=== PATIENT | female | born 1935 ===

== ENCOUNTER 2023-04-11 20:02 | Inpatient (IN) | payer MEDICARE, OTHER ==
[~2023-04-11] VITALS: Ht 154.9 cm; Wt 54.9 kg
[2023-04-11 22:02] VITALS: O2SAT 96
[2023-04-11] MEDS ORDERED: REMEDY ESSENTIAL ZINC PASTE 113 GM TOP PRN (22:15)
[2023-04-11 22:42] VITALS: BP 141/48; TEMP 98.2; O2SAT 95
[2023-04-11] MEDS ORDERED: MAGN400O6 PO (23:15)
[2023-04-11] MEDS ORDERED: ACET-3117 PO (23:15)
[2023-04-11] MEDS ORDERED: MELA10TA PO (23:15)
[2023-04-11] MEDS ORDERED: BISA10SU95 RC (23:15)
[2023-04-11] MEDS ORDERED: DOCU100T2 PO (23:15)
[2023-04-11] MEDS ORDERED: AMLO-212 PO (23:15)
[2023-04-11] MEDS ORDERED: POLY17PO4 PO (23:15)
[2023-04-11] MEDS ORDERED: TRAM100T23 PO (23:15)
[2023-04-11] MEDS ORDERED: SENN-18 PO (23:15)
[2023-04-11] MEDS ORDERED: CLON-418 PO (23:15)
[2023-04-11] MEDS ORDERED: HYDR-3980 PO (23:15)
[2023-04-11] MEDS ORDERED: RIVA10TA PO (23:15)
[2023-04-11] MEDS ORDERED: DIPH25CA83 PO (23:15)
[2023-04-11] MEDS ORDERED: HYDR-3972 PO (23:15)
[2023-04-11] MEDS ORDERED: CALC500T88 PO (23:15)
[2023-04-11] MEDS ORDERED: GABA-532 PO (23:15)
[2023-04-12] MEDS ORDERED: MIRALAX 17 GM POWD.PACK PO PRN
[2023-04-12] MEDS ORDERED: MAGNESIUM HYDROXIDE 30 ML LIQUID UDC PO PRN
[2023-04-12] MEDS ORDERED: SENNOSIDES 1 TABLET PO PRN
[2023-04-12] MEDS ORDERED: HYDROCODONE/APAP 10-325 MG TABLET PO PRN
[2023-04-12] MEDS ORDERED: Medication Not On Formulary EA (Clonidine HCl (Clonidine HCl ER) 0.1 MG) PO SCH
[2023-04-12] MEDS ORDERED: diphenhydrAMINE 25 MG CAP PO PRN
[2023-04-12] MEDS ORDERED: HYDROCODONE/APAP 5-325MG TABLET PO PRN
[2023-04-12] MEDS ORDERED: Medication Not On Formulary EA (Melatonin 0.5 MG) PO SCH
[2023-04-12] MEDS: TRAMADOL HCL 50 MG TABLET PO SCH ×4 (03:48→16:12)
[2023-04-12 04:22] VITALS: BP 143/51; TEMP 98.3; O2SAT 95
[2023-04-12 06:04] LABS: BASOPHILS % (AUTO) 0.3 % (0.0-2.0); EOSINOPHILS # (AUTO) 0.1 K/uL (0.0-0.7); EOSINOPHILS % (AUTO) 0.8 % (0.0-7.0); HEMATOCRIT 31.2 % (31.2-41.9); HEMOGLOBIN 10.9 g/dL (10.9-14.3); LYMPHOCYTES # (AUTO) 1.4 K/uL (0.8-4.8); LYMPHOCYTES % (AUTO) 14.9 % (20.5-51.5); MEAN CORPUSCULAR HEMOGLOBIN 30.9 uug (24.7-32.8); MEAN CORPUSCULAR HGB CONC 35 g/dL (32.3-35.6); MEAN CORPUSCULAR VOLUME 88.2 fL (75.5-95.3); MONOCYTES # (AUTO) 0.9 K/uL (0.1-1.30); MONOCYTES % (AUTO) 9.8 % (0.0-11.0); NEUTROPHILS # (AUTO) 7.2 K/uL (1.8-8.9); NEUTROPHILS % (AUTO) 74.2 % (38.5-71.5); PLATELET COUNT (AUTO) 213 K/uL (179-408); RED BLOOD CELL COUNT(AUTO) 3.53 MIL/uL (3.63-4.92); RED CELL DISTRIBUTION WIDTH 14.8 % (12.3-17.7); WHITE BLOOD COUNT (AUTO) 9.6 K/uL (3.8-11.8)
[2023-04-12 07:03] LABS: ALANINE AMINOTRANSFERASE 21 U/L (14-59); ALBUMIN 2.6 g/dL (3.4-5.0); ALKALINE PHOSPHATASE 56 U/L (50-136); ASPARTATE AMINOTRANSFERASE 38 U/L (15-37); BILIRUBIN,TOTAL 0.6 mg/dL (0.2-1.0); CALCIUM 8.5 mg/dL (8.5-10.1); CARBON DIOXIDE 27 mmol/L (21-32); CHLORIDE 107 mmol/L (98-107); CREATININE 0.9 mg/dL (0.6-1.3); GLUCOSE 115 mg/dL (74-106); MAGNESIUM 1.9 mg/dL (1.8-2.4); PHOSPHOROUS 2.6 mg/dL (2.5-4.9); POTASSIUM 3.7 mmol/L (3.5-5.1); SODIUM SERUM 139 mmol/L (136-145); TOTAL PROTEIN, SERUM 5.6 g/dL (6.4-8.2); UREA NITROGEN, BLOOD 16 mg/dL (7-18)
[2023-04-12 07:24] LABS: DIFFERENTIAL COMMENT 1
[2023-04-12] MEDS: AMLODIPINE 5 MG TABLET PO SCH (08:39)
[2023-04-12] MEDS: DOCUSATE SODIUM 100 MG CAPSULE PO SCH ×2 (08:39→16:12)
[2023-04-12] MEDS: RIVAROXABAN 10 MG TABLET PO SCH (08:40)
[2023-04-12] MEDS: CALCIUM CARBONATE 500 MG TABLET PO SCH (08:41)
[2023-04-12] MEDS: GABAPENTIN 100 MG CAPSULE PO SCH ×3 (08:41→16:12)
[2023-04-12] MEDS ORDERED: BISACODYL 10 MG SUPP.RECT RC SCH (09:00)
[2023-04-12] MEDS ORDERED: TRAM50TA2 PO (13:06)
[2023-04-12] MEDS ORDERED: CLON0.1T PO (13:06)
[2023-04-12] MEDS ORDERED: BISACODYL 10 MG SUPP.RECT RC PRN (14:00)
[2023-04-12 16:00] VITALS: BP 149/54; TEMP 98; O2SAT 99
[2023-04-12] MEDS ORDERED: TRAMADOL HCL 50 MG TABLET PO PRN (19:15)
[2023-04-12 20:44] VITALS: BP 126/37; TEMP 98.3; O2SAT 93
[2023-04-13 07:55] VITALS: BP 121/49; TEMP 98.5; O2SAT 96
[2023-04-13] MEDS: DOCUSATE SODIUM 100 MG CAPSULE PO SCH ×2 (08:57→17:24)
[2023-04-13] MEDS: CALCIUM CARBONATE 500 MG TABLET PO SCH (08:58)
[2023-04-13] MEDS: GABAPENTIN 100 MG CAPSULE PO SCH (08:58)
[2023-04-13] MEDS: AMLODIPINE 5 MG TABLET PO SCH (09:00)
[2023-04-13] MEDS: RIVAROXABAN 10 MG TABLET PO SCH (09:00)
[2023-04-13 15:49] VITALS: BP 144/42; TEMP 98.8; O2SAT 95
[2023-04-13 20:06] VITALS: BP 110/96; TEMP 98.6; O2SAT 96
[2023-04-14 04:16] VITALS: BP 140/54; TEMP 97.8; O2SAT 96
[2023-04-14 06:57] LABS: BASOPHILS % (AUTO) 0.6 % (0.0-2.0); EOSINOPHILS # (AUTO) 0.1 K/uL (0.0-0.7); EOSINOPHILS % (AUTO) 1.3 % (0.0-7.0); HEMOGLOBIN 9.9 g/dL (10.9-14.3); LYMPHOCYTES # (AUTO) 1.3 K/uL (0.8-4.8); LYMPHOCYTES % (AUTO) 17.2 % (20.5-51.5); MEAN CORPUSCULAR HEMOGLOBIN 30.2 uug (24.7-32.8); MEAN CORPUSCULAR HGB CONC 34 g/dL (32.3-35.6); MEAN CORPUSCULAR VOLUME 88.5 fL (75.5-95.3); MONOCYTES # (AUTO) 0.9 K/uL (0.1-1.30); MONOCYTES % (AUTO) 11.5 % (0.0-11.0); NEUTROPHILS # (AUTO) 5.4 K/uL (1.8-8.9); NEUTROPHILS % (AUTO) 69.4 % (38.5-71.5); PLATELET COUNT (AUTO) 242 K/uL (179-408); RED BLOOD CELL COUNT(AUTO) 3.28 MIL/uL (3.63-4.92); RED CELL DISTRIBUTION WIDTH 14.6 % (12.3-17.7); WHITE BLOOD COUNT (AUTO) 7.8 K/uL (3.8-11.8)
[2023-04-14 07:13] LABS: DIFFERENTIAL COMMENT 1
[2023-04-14 07:32] LABS: THYROID STIMULATING HORMONE 1.097 mIU/mL (0.358-3.740)
[2023-04-14 07:36] LABS: ALBUMIN 2.2 g/dL (3.4-5.0); BILIRUBIN,TOTAL 0.6 mg/dL (0.2-1.0); CALCIUM 8.6 mg/dL (8.5-10.1); CREATININE 0.7 mg/dL (0.6-1.3); MAGNESIUM 1.8 mg/dL (1.8-2.4); PHOSPHOROUS 3.3 mg/dL (2.5-4.9); POTASSIUM 3.8 mmol/L (3.5-5.1); TOTAL PROTEIN, SERUM 5.3 g/dL (6.4-8.2)
[2023-04-14 08:20] VITALS: BP 141/51; TEMP 98.8; O2SAT 96
[2023-04-14 08:43] LABS: *BILIRUBIN,URIN NEGATIVE (NEGATIVE); *BLOOD, URINE NEGATIVE (NEGATIVE); *CLARITY,URINE CLEAR (CLEAR); *COLOR,URINE YELLOW (YELLOW); *KETONES,URINE NEGATIVE (NEGATIVE); *PROTEIN,URINE 1+ (NEGATIVE); *UROBILINOGEN,URINE 0.2 E.U./dl (NORMAL); LEUKOCYTE ESTERASE ,URINE NEGATIVE (NEGATIVE); NITRITE, URINE NEGATIVE (NEGATIVE); UGLUCOSE NEGATIVE (NEGATIVE)
[2023-04-14] MEDS: AMLODIPINE 5 MG TABLET PO SCH (08:44)
[2023-04-14] MEDS: DOCUSATE SODIUM 100 MG CAPSULE PO SCH ×2 (08:44→17:17)
[2023-04-14] MEDS: CALCIUM CARBONATE 500 MG TABLET PO SCH (08:44)
[2023-04-14] MEDS: RIVAROXABAN 10 MG TABLET PO SCH (08:45)
[2023-04-14 09:35] LABS: BACTERIA,URINE NONE SEEN /HPF (NONE SEEN); SQUAMOUS EPITHELIAL CELL,UR FEW /HPF (NONE SEEN)
[2023-04-14 09:37] LABS: YEAST,URINE BUDDING YEAST /HPF (NONE SEEN)
[2023-04-14] MEDS: ACETAMINOPHEN 325 MG TABLET PO PRN (09:40)
[2023-04-14] MEDS: ACETAMINOPHEN 325 MG TABLET PO SCH ×3 (11:45→21:42)
[2023-04-14] MEDS ORDERED: TRAMADOL HCL 50 MG TABLET PO PRN (12:45)
[2023-04-14] MEDS: TRAMADOL HCL 50 MG TABLET PO PRN (15:00)
[2023-04-14 16:12] VITALS: BP 126/46; TEMP 98.4; O2SAT 96
[2023-04-14 20:33] VITALS: BP 122/46; TEMP 98.9; O2SAT 95
[2023-04-15 04:43] VITALS: BP 147/52; TEMP 98.5; O2SAT 96
[2023-04-15] MEDS: ACETAMINOPHEN 325 MG TABLET PO SCH ×2 (05:39→13:35)
[2023-04-15 08:06] VITALS: BP 126/49; TEMP 98.5; O2SAT 98
[2023-04-15] MEDS: CALCIUM CARBONATE 500 MG TABLET PO SCH (08:43)
[2023-04-15] MEDS: DOCUSATE SODIUM 100 MG CAPSULE PO SCH ×2 (08:43→17:29)
[2023-04-15] MEDS: TRAMADOL HCL 50 MG TABLET PO SCH ×2 (08:43→17:29)
[2023-04-15] MEDS: AMLODIPINE 5 MG TABLET PO SCH (08:48)
[2023-04-15] MEDS: RIVAROXABAN 10 MG TABLET PO SCH (08:50)
[2023-04-15 16:05] VITALS: BP 141/45; TEMP 97.9; O2SAT 95
[2023-04-15] MEDS ORDERED: TRAMADOL HCL 50 MG TABLET PO PRN (18:00)
[2023-04-15 21:25] VITALS: BP 138/58; TEMP 97.8; O2SAT 100
[2023-04-15] MEDS: MELATONIN 3 MG TABLET PO PRN (23:13)
[2023-04-15] MEDS: TRAMADOL HCL 50 MG TABLET PO PRN (23:14)
[2023-04-15] MEDS ORDERED: LORAZEPAM 2 MG/1 ML VIAL IV PRN (23:15)
[2023-04-15] MEDS: LORAZEPAM 1 MG TABLET PO PRN (23:40)
[2023-04-16 05:38] VITALS: BP 135/58; TEMP 98.2; O2SAT 99
[2023-04-16] MEDS: OXYCODONE/APAP 5-325 MG TABLET PO SCH ×2 (07:48→16:51)
[2023-04-16 07:55] VITALS: BP 168/60; TEMP 98.2; O2SAT 96
[2023-04-16] MEDS: DOCUSATE SODIUM 100 MG CAPSULE PO SCH ×2 (09:03→16:54)
[2023-04-16] MEDS: CALCIUM CARBONATE 500 MG TABLET PO SCH (09:03)
[2023-04-16] MEDS: AMLODIPINE 5 MG TABLET PO SCH (09:03)
[2023-04-16] MEDS: TRAMADOL HCL 50 MG TABLET PO PRN (09:04)
[2023-04-16] MEDS: RIVAROXABAN 10 MG TABLET PO SCH (09:04)
[2023-04-16] MEDS: GLUCERNA SHAKE 237 ML CAN PO SCH (09:09)
[2023-04-16 12:35] VITALS: BP 138/51
[2023-04-16] MEDS: ACETAMINOPHEN 325 MG TABLET PO PRN (13:34)
[2023-04-16 15:55] VITALS: BP 149/48; TEMP 98; O2SAT 96
[2023-04-16] MEDS: LORAZEPAM 1 MG TABLET PO PRN (16:54)
[2023-04-16] MEDS: NICOTINE 21 MG/24HR PATCH TD SCH (17:03)
[2023-04-16 21:23] VITALS: BP 126/60; TEMP 98.2; O2SAT 99
[2023-04-16] MEDS: MELATONIN 3 MG TABLET PO PRN (22:06)
[2023-04-17 00:10] VITALS: O2SAT 97
[2023-04-17] MEDS: LORAZEPAM 1 MG TABLET PO PRN (01:09)
[2023-04-17] MEDS: ACETAMINOPHEN 325 MG TABLET PO PRN ×2 (01:09→13:36)
[2023-04-17 05:42] VITALS: BP 130/60; TEMP 98.2; O2SAT 99
[2023-04-17 07:38] VITALS: BP 159/59; TEMP 98.5; O2SAT 95
[2023-04-17] MEDS: OXYCODONE/APAP 5-325 MG TABLET PO SCH ×2 (09:00→17:00)
[2023-04-17] MEDS: GLUCERNA SHAKE 237 ML CAN PO SCH (09:00)
[2023-04-17] MEDS: CALCIUM CARBONATE 500 MG TABLET PO SCH (09:43)
[2023-04-17] MEDS: DOCUSATE SODIUM 100 MG CAPSULE PO SCH ×2 (09:43→18:13)
[2023-04-17] MEDS: AMLODIPINE 5 MG TABLET PO SCH (09:44)
[2023-04-17] MEDS: TRAMADOL HCL 50 MG TABLET PO PRN (09:44)
[2023-04-17] MEDS: RIVAROXABAN 10 MG TABLET PO SCH (09:45)
[2023-04-17] MEDS: NICOTINE 21 MG/24HR PATCH TD SCH (09:46)
[2023-04-17 15:55] VITALS: BP 121/40; TEMP 98.4; O2SAT 99
[2023-04-17 20:20] VITALS: BP 152/48; TEMP 98.3; O2SAT 96
[2023-04-18 04:20] VITALS: BP 148/51; TEMP 97.3; O2SAT 96
[2023-04-18 08:00] VITALS: BP 130/45; TEMP 97.8; O2SAT 98
[2023-04-18] MEDS: NICOTINE 21 MG/24HR PATCH TD SCH (08:29)
[2023-04-18] MEDS: RIVAROXABAN 10 MG TABLET PO SCH (08:30)
[2023-04-18] MEDS: CALCIUM CARBONATE 500 MG TABLET PO SCH (08:30)
[2023-04-18] MEDS: AMLODIPINE 5 MG TABLET PO SCH (08:30)
[2023-04-18] MEDS: DOCUSATE SODIUM 100 MG CAPSULE PO SCH ×2 (08:30→16:16)
[2023-04-18] MEDS: OXYCODONE/APAP 5-325 MG TABLET PO SCH (08:31)
[2023-04-18] MEDS: GLUCERNA SHAKE 237 ML CAN PO SCH (08:31)
[2023-04-18] MEDS: TRAMADOL HCL 50 MG TABLET PO PRN (08:31)
[2023-04-18 11:01] LABS: *BILIRUBIN,URIN NEGATIVE (NEGATIVE); *BLOOD, URINE NEGATIVE (NEGATIVE); *CLARITY,URINE CLEAR (CLEAR); *COLOR,URINE YELLOW (YELLOW); *KETONES,URINE NEGATIVE (NEGATIVE); *PROTEIN,URINE 1+ (NEGATIVE); *UROBILINOGEN,URINE 0.2 E.U./dl (NORMAL); LEUKOCYTE ESTERASE ,URINE NEGATIVE (NEGATIVE); NITRITE, URINE NEGATIVE (NEGATIVE); PH,URINE 7.5 (5.0-8.0); UGLUCOSE NEGATIVE (NEGATIVE)
[2023-04-18 11:49] LABS: BACTERIA,URINE MODERATE /HPF (NONE SEEN); RBC,URINE 0-3 /HPF (0-3); SQUAMOUS EPITHELIAL CELL,UR MODERATE /HPF (NONE SEEN)
[2023-04-18 15:27] VITALS: TEMP 98.8
[2023-04-18] MEDS: LORAZEPAM 1 MG TABLET PO PRN (22:02)
[2023-04-18 22:03] VITALS: BP 111/47; TEMP 97.8; O2SAT 99
[2023-04-18] MEDS: MELATONIN 3 MG TABLET PO PRN (22:51)
[2023-04-19 05:01] VITALS: BP 120/60; TEMP 98.2; O2SAT 100
[2023-04-19 08:00] VITALS: TEMP 97
[2023-04-19 08:01] VITALS: TEMP 97
[2023-04-19] MEDS: DOCUSATE SODIUM 100 MG CAPSULE PO SCH ×2 (09:01→17:48)
[2023-04-19] MEDS: AMLODIPINE 5 MG TABLET PO SCH (09:01)
[2023-04-19] MEDS: CALCIUM CARBONATE 500 MG TABLET PO SCH (09:01)
[2023-04-19] MEDS: TRAMADOL HCL 50 MG TABLET PO PRN ×2 (09:02→19:52)
[2023-04-19] MEDS: RIVAROXABAN 10 MG TABLET PO SCH (09:03)
[2023-04-19] MEDS: GLUCERNA SHAKE 237 ML CAN PO SCH (09:03)
[2023-04-19 15:41] VITALS: TEMP 97.2
[2023-04-19 19:42] VITALS: BP 146/49; TEMP 98.1; O2SAT 95
[2023-04-20] MEDS: MELATONIN 3 MG TABLET PO PRN ×2 (01:00→21:01)
[2023-04-20 04:46] VITALS: BP 153/47; TEMP 98.4; O2SAT 97
[2023-04-20] MEDS: CLONIDINE HCL 0.1 MG TABLET PO PRN (04:51)
[2023-04-20 08:26] VITALS: TEMP 98
[2023-04-20] MEDS: RIVAROXABAN 10 MG TABLET PO SCH (09:30)
[2023-04-20] MEDS: TRAMADOL HCL 50 MG TABLET PO PRN (09:30)
[2023-04-20] MEDS: DOCUSATE SODIUM 100 MG CAPSULE PO SCH ×2 (09:30→17:21)
[2023-04-20] MEDS: CALCIUM CARBONATE 500 MG TABLET PO SCH (09:31)
[2023-04-20] MEDS: AMLODIPINE 5 MG TABLET PO SCH (09:31)
[2023-04-20] MEDS: GLUCERNA SHAKE 237 ML CAN PO SCH (09:34)
[2023-04-20 15:46] VITALS: TEMP 97.6
[2023-04-20 16:00] VITALS: BP 128/52; TEMP 97.6; O2SAT 97
[2023-04-20 19:47] VITALS: BP 111/48; TEMP 98.5; O2SAT 95
[2023-04-21 05:19] VITALS: BP 148/47; TEMP 98.7; O2SAT 95
[2023-04-21 07:21] LABS: BASOPHILS # (AUTO) 0.1 K/UL (0.0-0.2); BASOPHILS % (AUTO) 0.9 % (0.0-2.0); EOSINOPHILS # (AUTO) 0.1 K/uL (0.0-0.7); EOSINOPHILS % (AUTO) 1.1 % (0.0-7.0); HEMATOCRIT 33.1 % (31.2-41.9); HEMOGLOBIN 11.3 g/dL (10.9-14.3); LYMPHOCYTES # (AUTO) 1.4 K/uL (0.8-4.8); LYMPHOCYTES % (AUTO) 17.4 % (20.5-51.5); MEAN CORPUSCULAR HEMOGLOBIN 30.3 uug (24.7-32.8); MEAN CORPUSCULAR HGB CONC 34 g/dL (32.3-35.6); MEAN CORPUSCULAR VOLUME 88.5 fL (75.5-95.3); MONOCYTES # (AUTO) 0.6 K/uL (0.1-1.30); MONOCYTES % (AUTO) 7.2 % (0.0-11.0); NEUTROPHILS # (AUTO) 6.1 K/uL (1.8-8.9); NEUTROPHILS % (AUTO) 73.4 % (38.5-71.5); PLATELET COUNT (AUTO) 489 K/uL (179-408); RED BLOOD CELL COUNT(AUTO) 3.74 MIL/uL (3.63-4.92); RED CELL DISTRIBUTION WIDTH 14.8 % (12.3-17.7); WHITE BLOOD COUNT (AUTO) 8.3 K/uL (3.8-11.8)
[2023-04-21 07:23] LABS: DIFFERENTIAL COMMENT 1
[2023-04-21 07:42] LABS: ALBUMIN 2.7 g/dL (3.4-5.0); BILIRUBIN,TOTAL 0.4 mg/dL (0.2-1.0); CREATININE 0.8 mg/dL (0.6-1.3); PHOSPHOROUS 4.1 mg/dL (2.5-4.9)
[2023-04-21 07:46] LABS: CALCIUM 8.6 mg/dL (8.5-10.1)
[2023-04-21 07:50] LABS: THYROID STIMULATING HORMONE 3.407 mIU/mL (0.358-3.740)
[2023-04-21 08:00] VITALS: BP 147/54; TEMP 98.3; O2SAT 96
[2023-04-21] MEDS: CALCIUM CARBONATE 500 MG TABLET PO SCH (08:34)
[2023-04-21] MEDS: DOCUSATE SODIUM 100 MG CAPSULE PO SCH ×2 (08:35→17:55)
[2023-04-21] MEDS: RIVAROXABAN 10 MG TABLET PO SCH (08:36)
[2023-04-21] MEDS: AMLODIPINE 5 MG TABLET PO SCH (08:37)
[2023-04-21] MEDS: GLUCERNA SHAKE 237 ML CAN PO SCH (08:38)
[2023-04-21 16:00] VITALS: BP 140/44; TEMP 98.9; O2SAT 95
[2023-04-21 20:17] VITALS: BP 146/48; TEMP 98.5; O2SAT 97
[2023-04-21 20:58] VITALS: O2SAT 95
[2023-04-22 04:07] VITALS: BP 174/50; TEMP 98.5; O2SAT 96
[2023-04-22 04:22] VITALS: BP 139/51
[2023-04-22 07:49] VITALS: BP 171/53; TEMP 98.3; O2SAT 97
[2023-04-22] MEDS: CLONIDINE HCL 0.1 MG TABLET PO PRN (08:14)
[2023-04-22] MEDS: CALCIUM CARBONATE 500 MG TABLET PO SCH (08:15)
[2023-04-22] MEDS: RIVAROXABAN 10 MG TABLET PO SCH (08:16)
[2023-04-22] MEDS: DOCUSATE SODIUM 100 MG CAPSULE PO SCH ×2 (08:17→17:13)
[2023-04-22] MEDS: AMLODIPINE 5 MG TABLET PO SCH (08:17)
[2023-04-22] MEDS: GLUCERNA SHAKE 237 ML CAN PO SCH (09:05)
[2023-04-22 16:49] VITALS: BP 136/54; TEMP 98.2; O2SAT 96
[2023-04-22] MEDS ORDERED: ENSURE ENLIVE (VAN) 240 ML LIQUID PO SCH (17:00)
== END 2023-04-22 18:30 | disposition home health service (06) | DRG 560 ==
PROVIDERS: ADMIT Physical Medicine & Rehabilitation Pain Medicine; ATTEND Physical Medicine & Rehabilitation Pain Medicine
DX: S72.001D Fracture of unspecified part of neck of right femur, subsequent encounter for closed fracture with routine healing (principal); G93.40 Encephalopathy, unspecified; I47.19 Other supraventricular tachycardia; W01.0XXD Fall on same level from slipping, tripping and stumbling without subsequent striking against object, subsequent encounter; E78.5 Hyperlipidemia, unspecified; I10 Essential (primary) hypertension; I48.0 Paroxysmal atrial fibrillation; Z79.01 Long term (current) use of anticoagulants; Z95.2 Presence of prosthetic heart valve; Z96.641 Presence of right artificial hip joint; R42 Dizziness and giddiness; M19.90 Unspecified osteoarthritis, unspecified site; Z95.0 Presence of cardiac pacemaker
CPT/HCPCS: 36415; 70450; 73502; 83735; 84100; 84443; 85025; 86592; 97535-GO-CO; A4663; A6209